=== PATIENT | male | born 1985 | race Caucasian/White ===

== ENCOUNTER 2017-12-28 15:04 | Emergency (ER) | payer SELFPAY ==
[~2017-12-28] VITALS: Ht 175.3 cm; Wt 79.5 kg
[2017-12-28 15:07] VITALS: Ht 175.3 cm; Wt 79.5 kg
[2017-12-28] MEDS ORDERED: OCUFLOX 0.3 % OP5 ML LEFT EYE (17:19)
[2017-12-28] MEDS ORDERED: AUGMENTIN 875-11 TAB PO (17:19)
[2017-12-28 18:31] VITALS: BP 120/88
== END 2017-12-28 18:30 | disposition home or self-care (01) ==
LOC: D.ER 15:04
DX: T15.02XA Foreign body in cornea, left eye, initial encounter (principal); X58.XXXA Exposure to other specified factors, initial encounter; Y93.89 Activity, other specified; Y92.018 Other place in single-family (private) house as the place of occurrence of the external cause; F17.200 Nicotine dependence, unspecified, uncomplicated